=== PATIENT | male | born 1940 | race Caucasian/White ===

== ENCOUNTER 2019-02-11 15:46 | Emergency (ER) | payer MEDICARE, OTHER ==
[2019-02-11] MEDS ORDERED: NS 0.9% 1000 ML** 1,000 ML IV ONE (17:45)
--- NOTE | 2019-02-11 17:45 | ED ---
Abdominal Pain/Male - HPI Summary HPI Summary: Patient complains of intermittent right lower quadrant pain starting last night. Pain described as new onset, sharp, 4/10 pain, lasts for seconds at a time. Patient states 4 episodes since last night. No active abdominal pain at this time. Denies trauma, fever, cough, sore throat, CP, SOB, N/V/D, change in urine, change in BM, penile or testicular symptoms. Medical history is A. fib, anticoagulated with Coumadin. Abdominal surgical history is none. - History of Current Complaint Chief Complaint: EDAbdPain Stated Complaint: LOWER ABD PAIN Time Seen by Provider: 02/11/19 17:43 Hx Obtained From: Patient, Family/Slate [employer]er Onset/Duration: Sudden Onset, Lasting Hours Timing: Intermittent, Lasting Seconds Severity Initially: Moderate Severity Currently: Moderate Pain Intensity: 4 Pain Scale Used: 0-10 Numeric Location: Discrete At: RLQ Radiates: No Character: Sharp Aggravating Factor(s): Nothing Alleviating Factor(s): Spontaneous Resolution Associated Signs And Symptoms: Positive: Negative - Allergies/Home Medications Allergies/Adverse Reactions: Allergies Allergy/AdvReac Type Severity Reaction Status Date / Time No Known Allergies Allergy Verified 02/11/19 17:50 PMH/Surg Hx/FS Hx/Imm Hx Endocrine/Hematology History: Denies: Hx Anticoagulant Therapy Cardiovascular History: Reports: Hx Hypercholesterolemia, Hx Hypertension Respiratory History: Denies: Hx Chronic Obstructive Pulmonary Disease (COPD) History: Denies: Hx Dialysis Sensory History: Denies: Hx Eye Prosthesis Opthamlomology History: Denies: Hx Legally Blind EENT History: Denies: Hx Deafness Neurological History: Denies: Hx Dementia - Immunization History Date of Tetanus Vaccine: utd Date of Influenza Vaccine: 2014 Infectious Disease History: No Infectious Disease History: Denies: Traveled Outside the [place] in Last 30 Days - Family History Known Family History: Positive: Cardiac Disease - father, Other - brother and sister [place] Negative: Hypertension, Diabetes - Social History Alcohol Use: Occasionally Substance Use Type: Reports: None Smoking Status (MU): Former Smoker Review of Systems Constitutional: Negative Eyes: Negative ENT: Negative Cardiovascular: Negative Respiratory: Negative Positive: Abdominal Pain Genitourinary: Negative Musculoskeletal: Negative Skin: Negative Neurological: Negative Psychological: Normal All Other Systems Reviewed And Are Negative: Yes Physical Exam - Summary Physical Exam Summary: Abdomen soft nontender. Triage Information Reviewed: Yes Vital Signs On Initial Exam: Initial Vitals Temp Pulse Resp BP Pulse Ox 96.3 F 69 16 173/91 95 02/11/19 15:48 02/11/19 15:48 02/11/19 15:48 02/11/19 15:48 02/11/19 15:48 Vital Signs Reviewed: Yes Appearance: Positive: Well-Appearing Skin: Positive: Warm Head/Face: Positive: Normal Head/Face Inspection Eyes: Positive: Normal Neck: Positive: Supple Respiratory/Lung Sounds: Positive: Clear to Auscultation Cardiovascular: Positive: Normal Abdomen Description: Positive: Nontender Musculoskeletal: Positive: Normal Neurological: Positive: Normal Psychiatric: Positive: Normal AVPU Assessment: Alert - Royer Coma Scale Best Eye Response: 4 - Spontaneous Best Motor Response: 6 - Obeys Commands Best Verbal Response: 5 - Oriented Coma Scale Total: 15 Procedures - Sedation Patient Received Moderate/Deep Sedation with Procedure: No Diagnostics - Vital Signs Vital Signs Temp Pulse Resp BP Pulse Ox 02/11/19 15:48 96.3 F 69 16 173/91 95 - Laboratory Result Diagrams: 02/11/19 18:00 02/11/19 18:00 Lab Statement: Any lab studies that have been ordered have been reviewed, and results considered in the medical decision making process. Abdominal Pain Male Course/Dx - Course Course Of Treatment: Patient complains of intermittent right lower quadrant pain starting last night. Pain described as new onset, sharp, 4/10 pain, lasts for seconds at a time. Patient states 4 episodes since last night. No active abdominal pain at this time. Denies trauma, fever, cough, sore throat, CP, SOB , N/V/D, change in urine, change in BM, penile or testicular symptoms. Medical history is A. fib, anticoagulated with Coumadin. Abdominal surgical history is none. Vital signs within normal limits. Labs unremarkable. CT abdomen and pelvis negative except for inguinal hernia. - Diagnoses Provider Diagnoses: Abdominal pain, Inguinal hernia Discharge ED - Sign-Out/Discharge Documenting (check all that apply): Patient Departure - Discharge Plan Condition: Stable Disposition: HOME Patient Education Materials: Inguinal Hernia (ED), Acute Abdominal Pain (ED) Referrals: Ayanna Christie [Primary Care Provider] - Dillon Goodson MD [Medical Doctor] - Additional Instructions: Follow-up with general surgery Dr. Goodson for further evaluation of right inguinal hernia. Return to the ED for any new or worsening symptoms. - Billing Disposition and Condition Condition: STABLE Disposition: Home - Attestation Statements Provider Attestation: I was available for consultation for this patient. I did not evaluate the patient, or participate in any medical decision making or disposition decisions unless I am specifically named in the chart as having consulted on the patient. If I have consulted on the patient, please see my own ED note on the patient encounter. Zahira Breen MD
[2019-02-11 18:12] LABS: ABS Eosinophils 0.1 10^3/ul (0-0.6); ABS Lymphocytes 1.7 10^3/ul (1.0-4.8); ABS Monocytes 0.9 10^3/ul (0-0.8); ABS Neutrophils 4.9 10^3/ul (1.5-7.7); Eosinophil % 1.2 %; Hematocrit 49 % (42-52); Hemoglobin 16.6 g/dL (14.0-18.0); Lymphocyte % 22.3 %; Mean Corpuscular HGB Conc 34 g/dL (31-36); Mean Corpuscular Hemoglobin 32 pg (27-31); Mean Corpuscular Volume 95 fL (80-94); Mean Platelet Volume 8.4 fL (7.4-10.4); Nucleated Red Blood Cells % 0.1; Platelet Count 177 10^3/uL (150-450); Red Blood Count 5.21 10^6 /uL (4.18-5.48); Red Cell Distribution Width 14 % (10-15); White Blood Count 7.7 10^3/uL (3.5-10.8)
[2019-02-11 18:29] LABS: ALT 17 U/L (7-52); AST 25 U/L (13-39); Albumin 3.8 g/dL (3.2-5.2); Albumin/Globulin Ratio 1.5 (1-3); Alkaline Phosphatase 69 U/L (34-104); Anion Gap 3 mmol/L (2-11); BUN/Creatinine Ratio 13.1 (8-20); Blood Urea Nitrogen 14 mg/dL (6-24); C Reactive Protein 2.64 mg/L (<8.01); CO2 Carbon Dioxide 32 mmol/L (22-32); Calcium 9.4 mg/dL (8.6-10.3); Chloride 103 mmol/L (101-111); EGFR African American 81.1 (>60); Globulin 2.6 g/dL (2-4); Glucose 89 mg/dL (70-100); Potassium 4.5 mmol/L (3.5-5.0); Sodium 138 mmol/L (135-145); Total Protein 6.4 g/dL (6.4-8.9)
[2019-02-11] MEDS ORDERED: Iohexol 300* (CONTRAST) 10 ML SDV IV ONE (18:37)
[2019-02-11 20:12] VITALS: BP 161/109
== END 2019-02-11 20:12 | disposition home or self-care (01) ==
LOC: ED 15:46
DX: K40.90 Unilateral inguinal hernia, without obstruction or gangrene, not specified as recurrent (principal); K57.30 Diverticulosis of large intestine without perforation or abscess without bleeding; E78.00 Pure hypercholesterolemia, unspecified; I10 Essential (primary) hypertension; Z87.891 Personal history of nicotine dependence; I48.91 Unspecified atrial fibrillation; Z79.01 Long term (current) use of anticoagulants
CPT/HCPCS: 36415; 74177; 80053; 83605; 83690; 85025; 86140; 96360; 96361; 99282; Q9967

== ENCOUNTER 2023-02-11 17:17 | Inpatient (IN) ==
[2023-02-11 18:01] LABS: ABS Eosinophils 0.1 10^3/uL (0.0-0.5); ABS Lymphocytes 1.3 10^3/uL (1.0-4.8); ABS Neutrophils 6.2 10^3/uL (1.5-7.6); ABS Nucleated RBC 0.02 10^3/ul; Eosinophil % 1.1 %; Hematocrit 44.8 % (38-53); Hemoglobin 15.5 g/dL (13.2-16.3); Lymphocyte % 15.5 %; Mean Corpuscular Hemoglobin 31.2 pg (27-33); Mean Corpuscular Hgb Conc 34.5 g/dL (31-36); Mean Corpuscular Volume 90.4 fL (80-97); Mean Platelet Volume 8.5 fL (7.5-11.2); Nucleated Red Blood Cells % 0.2 %/100WBC (0.0-0.8); Platelet Count 185 10^3/uL (150-450); Red Blood Count 4.95 10^6/uL (4.06-5.63); Red Cell Distribution Width 15.7 % (12-17); White Blood Count 8.7 10^3/uL (3.6-10.2)
[2023-02-11] MEDS ORDERED: Iodixanol (CONTRAST) 320 MG/ML 100 ML SDV IV ONE (18:05)
[2023-02-11 18:24] LABS: Activated Partial Thrombo Time 42.3 seconds (26.0-38.0); Albumin 4.1 g/dL (3.2-5.2); Albumin/Globulin Ratio 1.7 (1-3); Creatinine, Serum 0.84 mg/dL (0.67-1.17); Direct Bilirubin 0.2 mg/dL (0.03-0.18); Globulin 2.4 g/dL (2-4); HDL Cholesterol 43.6 mg/dL; INR 1.42 (0.83-1.13); Indirect Bilirubin 0.9 mg/dL (0.3-1.0); Potassium 3.9 mmol/L (3.5-5.0); Total Bilirubin 1.1 mg/dL (0.2-1.0); Total Protein 6.5 g/dL (6.4-8.9); eGFR CKD-EPI 87.6 (>60)
[2023-02-11 19:18] LABS: Urine Appearance Clear; Urine Bilirubin Negative (Negative); Urine Blood 1+ (Negative); Urine Color Yellow; Urine Glucose Negative (Negative); Urine Ketones Negative (Negative); Urine Nitrite Negative (Negative); Urine Protein Negative (Negative); Urine Specific Gravity 1.038 (1.002-1.030); Urine Urobilinogen Negative (Negative)
[2023-02-11 19:39] LABS: High Sensitivity Troponin 1 Hr 27 pg/mL (<20)
[2023-02-11] MEDS ORDERED: HYDROcodone/ACETAMIN 5/325 mg TAB PO ONE (19:46)
[2023-02-11 19:50] LABS: Urine Bacteria Absent (Absent); Urine Red Blood Cell Trace(0-2/hpf) (Absent); Urine White Blood Cell Trace(0-5/hpf) (Absent)
[2023-02-12] MEDS ORDERED: Morphine 2 MG/ML SYRINGE IV PRN (01:32)
[2023-02-12] MEDS ORDERED: HYDROcodone/ACETAMIN 5/325 mg TAB PO ONE (01:55)
[2023-02-12 06:08] LABS: Hematocrit 45.2 % (38-53); Hemoglobin 15.4 g/dL (13.2-16.3); Mean Corpuscular Hemoglobin 30.8 pg (27-33); Mean Corpuscular Volume 90.7 fL (80-97); Mean Platelet Volume 8.6 fL (7.5-11.2); Platelet Count 184 10^3/uL (150-450); Red Blood Count 4.99 10^6/uL (4.06-5.63); Red Cell Distribution Width 15.9 % (12-17); White Blood Count 8.8 10^3/uL (3.6-10.2)
[2023-02-12 06:31] LABS: Creatinine, Serum 0.82 mg/dL (0.67-1.17); Potassium 3.5 mmol/L (3.5-5.0); eGFR CKD-EPI 88.2 (>60)
[2023-02-12] MEDS: HYDROcodone/ACETAMIN 5/325 mg TAB PO SCH ×3 (08:25→20:41)
[2023-02-12] MEDS ORDERED: Sulfur Hexaflouride MICROSPHR 25 MG VIAL ONE (09:01)
[2023-02-12 17:23] LABS: Folate 9.61 ng/mL (5.90-24.80)
[2023-02-12] MEDS ORDERED: Thiamine 100 MG/ML 2 ml VIAL 100 MG, Folic Acid IV 1 MG, Multiple Vitamin IV ADULT 10 M... IV ONE (18:00)
[2023-02-13 06:55] LABS: Hematocrit 46.3 % (38-53); Hemoglobin 15.7 g/dL (13.2-16.3); Mean Corpuscular Hemoglobin 30.8 pg (27-33); Mean Corpuscular Volume 90.6 fL (80-97); Mean Platelet Volume 8.2 fL (7.5-11.2); Platelet Count 193 10^3/uL (150-450); Red Blood Count 5.11 10^6/uL (4.06-5.63); Red Cell Distribution Width 15.8 % (12-17)
[2023-02-13 07:17] LABS: Calcium 8.8 mg/dL (8.6-10.3); Creatinine, Serum 0.87 mg/dL (0.67-1.17); Magnesium 1.9 mg/dL (1.9-2.7); Potassium 3.8 mmol/L (3.5-5.0); eGFR CKD-EPI 86.7 (>60)
[2023-02-13] MEDS ORDERED: Rocuronium 50 mg VIAL 10 mg/ml 5 ml VIAL (50 mg) ONE (09:16)
[2023-02-13] MEDS ORDERED: Glycopyrrolate IV 0.2 MG/ML 1 ML VIAL ONE (09:17)
[2023-02-13] MEDS ORDERED: Propofol 10 MG/ML 20 ML BTL ONE (09:17)
[2023-02-13] MEDS ORDERED: Ondansetron 4 mg VIAL 2 MG/ML 2 ml VIAL ONE (09:17)
[2023-02-13] MEDS ORDERED: Lidocaine 2% PF 5 ML VIAL ONE (09:17)
[2023-02-13] MEDS ORDERED: Phenylephrine 40 mcg/mL 10mL (400mcg) SYRINGE ONE (09:17)
[2023-02-13] MEDS ORDERED: KETAMINE HCL 10 MG/ML 20 ml VIAL (200 MG) ONE (09:20)
[2023-02-13] MEDS: HYDROcodone/ACETAMIN 5/325 mg TAB PO SCH ×3 (11:48→20:58)
[2023-02-14 07:07] LABS: ABS Eosinophils 0.1 10^3/uL (0.0-0.5); ABS Lymphocytes 1.3 10^3/uL (1.0-4.8); ABS Monocytes 1.4 10^3/uL (0.0-1.1); ABS Neutrophils 8.2 10^3/uL (1.5-7.6); ABS Nucleated RBC 0.01 10^3/ul; Eosinophil % 0.6 %; Hematocrit 46.8 % (38-53); Hemoglobin 15.7 g/dL (13.2-16.3); Lymphocyte % 11.9 %; Mean Corpuscular Hemoglobin 30.7 pg (27-33); Mean Corpuscular Hgb Conc 33.5 g/dL (31-36); Mean Corpuscular Volume 91.6 fL (80-97); Mean Platelet Volume 9.1 fL (7.5-11.2); Nucleated Red Blood Cells % 0.1 %/100WBC (0.0-0.8); Platelet Count 187 10^3/uL (150-450); Red Blood Count 5.11 10^6/uL (4.06-5.63); Red Cell Distribution Width 15.8 % (12-17)
[2023-02-14 07:30] LABS: Calcium 8.7 mg/dL (8.6-10.3); Creatinine, Serum 0.86 mg/dL (0.67-1.17); Magnesium 1.9 mg/dL (1.9-2.7); Phosphorus 2.7 mg/dL (2.5-5.0); Potassium 4.1 mmol/L (3.5-5.0)
[2023-02-14] MEDS: HYDROcodone/ACETAMIN 5/325 mg TAB PO SCH ×3 (09:16→20:11)
[2023-02-15 04:21] LABS: PCO2 Arterial 43 mmHg (35-45); PO2 Arterial 103 mmHg (80-100)
[2023-02-15 06:49] LABS: ABS Eosinophils 0.1 10^3/uL (0.0-0.5); ABS Lymphocytes 1.2 10^3/uL (1.0-4.8); ABS Monocytes 1.5 10^3/uL (0.0-1.1); ABS Neutrophils 8.7 10^3/uL (1.5-7.6); Eosinophil % 0.5 %; Lymphocyte % 10.3 %; Mean Corpuscular Hemoglobin 31.1 pg (27-33); Mean Corpuscular Hgb Conc 33.9 g/dL (31-36); Mean Corpuscular Volume 91.6 fL (80-97); Mean Platelet Volume 8.9 fL (7.5-11.2); Platelet Count 201 10^3/uL (150-450); Red Blood Count 5.13 10^6/uL (4.06-5.63); Red Cell Distribution Width 15.9 % (12-17); White Blood Count 11.4 10^3/uL (3.6-10.2)
[2023-02-15 07:29] LABS: Magnesium 1.9 mg/dL (1.9-2.7); Phosphorus 2.6 mg/dL (2.5-5.0)
[2023-02-15] MEDS: HYDROcodone/ACETAMIN 5/325 mg TAB PO SCH ×3 (08:02→21:22)
[2023-02-15] MEDS ORDERED: Lisinopril/HCTZ 10/12.5 TA(NF) PO SCH (12:00)
[2023-02-15] MEDS ORDERED: ceFAZolin VIAL 2 GM in NS 0.9% 100 ml BAG 100 ML IVPB SCH (18:00)
[2023-02-15] MEDS: ceFAZolin 2 GM in NS PREMIX 2 GM/100 ML BAG IVPB SCH (21:18)
[2023-02-16 01:49] LABS: Urine Appearance Cloudy; Urine Bilirubin Negative (Negative); Urine Blood 3+ (Negative); Urine Color Amber; Urine Glucose Negative (Negative); Urine Ketones Negative (Negative); Urine Nitrite Negative (Negative); Urine Protein 1+(30 mg/dL) (Negative); Urine Specific Gravity 1.023 (1.002-1.030); Urine Urobilinogen Negative (Negative)
[2023-02-16 01:55] LABS: Urine Bacteria Absent (Absent); Urine Red Blood Cell 3+(>10/hpf) (Absent); Urine Squamous Epithelial Cell Present (Absent); Urine White Blood Cell 2+(11-20/hpf) (Absent)
[2023-02-16] MEDS: ceFAZolin 2 GM in NS PREMIX 2 GM/100 ML BAG IVPB SCH ×4 (03:14→20:58)
[2023-02-16] MEDS: HYDROcodone/ACETAMIN 5/325 mg TAB PO SCH ×3 (07:48→20:54)
[2023-02-16 07:49] LABS: Albumin 3.4 g/dL (3.2-5.2); Albumin/Globulin Ratio 1.2 (1-3); Calcium 8.6 mg/dL (8.6-10.3); Creatinine, Serum 1.03 mg/dL (0.67-1.17); Globulin 2.8 g/dL (2-4); Phosphorus 3.2 mg/dL (2.5-5.0); Potassium 4.2 mmol/L (3.5-5.0); Total Bilirubin 1.6 mg/dL (0.2-1.0); Total Protein 6.2 g/dL (6.4-8.9)
[2023-02-16 09:27] LABS: Hematocrit 45.7 % (38-53); Hemoglobin 15.4 g/dL (13.2-16.3); Mean Corpuscular Hgb Conc 33.8 g/dL (31-36); Mean Corpuscular Volume 91.9 fL (80-97); Mean Platelet Volume 9.1 fL (7.5-11.2); Platelet Count 200 10^3/uL (150-450); Red Blood Count 4.97 10^6/uL (4.06-5.63); Red Cell Distribution Width 15.6 % (12-17); White Blood Count 12.6 10^3/uL (3.6-10.2)
[2023-02-16 09:42] LABS: ABS Eosinophils 0.1 10^3/uL (0.0-0.5); ABS Lymphocytes 1.3 10^3/uL (1.0-4.8); ABS Monocytes 1.8 10^3/uL (0.0-1.1); ABS Neutrophils 9.4 10^3/uL (1.5-7.6); ABS Nucleated RBC 0.01 10^3/ul; Eosinophil % 0.5 %; Lymphocyte % 10.5 %; Nucleated Red Blood Cells % 0.1 %/100WBC (0.0-0.8)
[2023-02-17] MEDS: HYDROcodone/ACETAMIN 5/325 mg TAB PO SCH ×3 (08:22→20:54)
[2023-02-17] MEDS: ceFAZolin 2 GM in NS PREMIX 2 GM/100 ML BAG IVPB SCH ×3 (08:22→21:08)
[2023-02-17 13:37] LABS: ABS Basophils 0.1 10^3/uL (0.0-0.1); ABS Eosinophils 0.2 10^3/uL (0.0-0.5); ABS Lymphocytes 1.1 10^3/uL (1.0-4.8); ABS Monocytes 1.4 10^3/uL (0.0-1.1); ABS Neutrophils 9.6 10^3/uL (1.5-7.6); ABS Nucleated RBC 0.02 10^3/ul; Hemoglobin 15.6 g/dL (13.2-16.3); Lymphocyte % 8.9 %; Mean Corpuscular Hemoglobin 31.1 pg (27-33); Mean Corpuscular Hgb Conc 33.9 g/dL (31-36); Mean Corpuscular Volume 91.8 fL (80-97); Mean Platelet Volume 8.6 fL (7.5-11.2); Nucleated Red Blood Cells % 0.1 %/100WBC (0.0-0.8); Platelet Count 232 10^3/uL (150-450); Red Blood Count 5.01 10^6/uL (4.06-5.63); Red Cell Distribution Width 15.5 % (12-17); White Blood Count 12.4 10^3/uL (3.6-10.2)
[2023-02-17 13:53] LABS: Calcium 9.1 mg/dL (8.6-10.3); Creatinine, Serum 0.81 mg/dL (0.67-1.17); Phosphorus 2.9 mg/dL (2.5-5.0); Potassium 4.5 mmol/L (3.5-5.0); eGFR CKD-EPI 88.6 (>60)
[2023-02-17] MEDS ORDERED: Docusate LIQ 100 MG/10 ML UDC PO PRN (16:15)
[2023-02-17 17:30] LABS: Urine Appearance Clear; Urine Bacteria Absent (Absent); Urine Bilirubin Negative (Negative); Urine Blood 1+ (Negative); Urine Color Yellow; Urine Glucose Negative (Negative); Urine Ketones Negative (Negative); Urine Nitrite Negative (Negative); Urine Protein 1+(30 mg/dL) (Negative); Urine Red Blood Cell 2+(6-10/hpf) (Absent); Urine Specific Gravity 1.024 (1.002-1.030); Urine Urobilinogen Negative (Negative); Urine White Blood Cell Trace(0-5/hpf) (Absent)
[2023-02-18 05:18] LABS: ABS Eosinophils 0.5 10^3/uL (0.0-0.5); ABS Monocytes 1.3 10^3/uL (0.0-1.1); ABS Nucleated RBC 0.01 10^3/ul; Eosinophil % 4.3 %; Hematocrit 44.7 % (38-53); Hemoglobin 15.3 g/dL (13.2-16.3); Lymphocyte % 9.3 %; Mean Corpuscular Hemoglobin 31.2 pg (27-33); Mean Corpuscular Hgb Conc 34.3 g/dL (31-36); Mean Platelet Volume 8.7 fL (7.5-11.2); Nucleated Red Blood Cells % 0.1 %/100WBC (0.0-0.8); Platelet Count 267 10^3/uL (150-450); Red Blood Count 4.91 10^6/uL (4.06-5.63); Red Cell Distribution Width 15.3 % (12-17); White Blood Count 10.8 10^3/uL (3.6-10.2)
[2023-02-18] MEDS: ceFAZolin 2 GM in NS PREMIX 2 GM/100 ML BAG IVPB SCH ×3 (05:23→21:41)
[2023-02-18 05:45] LABS: Calcium 8.8 mg/dL (8.6-10.3); Creatinine, Serum 0.67 mg/dL (0.67-1.17); Magnesium 1.9 mg/dL (1.9-2.7); Phosphorus 2.9 mg/dL (2.5-5.0); eGFR CKD-EPI 93.8 (>60)
[2023-02-18] MEDS: HYDROcodone/ACETAMIN 5/325 mg TAB PO SCH ×3 (10:20→21:31)
[2023-02-19] MEDS: ceFAZolin 2 GM in NS PREMIX 2 GM/100 ML BAG IVPB SCH (05:10)
[2023-02-19 06:29] LABS: ABS Basophils 0.1 10^3/uL (0.0-0.1); ABS Eosinophils 0.6 10^3/uL (0.0-0.5); ABS Lymphocytes 1.1 10^3/uL (1.0-4.8); ABS Monocytes 1.2 10^3/uL (0.0-1.1); ABS Nucleated RBC 0.01 10^3/ul; Eosinophil % 6.1 %; Hematocrit 46.3 % (38-53); Hemoglobin 15.6 g/dL (13.2-16.3); Lymphocyte % 11.4 %; Mean Corpuscular Hemoglobin 30.7 pg (27-33); Mean Corpuscular Hgb Conc 33.7 g/dL (31-36); Mean Platelet Volume 8.5 fL (7.5-11.2); Nucleated Red Blood Cells % 0.1 %/100WBC (0.0-0.8); Platelet Count 274 10^3/uL (150-450); Red Blood Count 5.09 10^6/uL (4.06-5.63)
[2023-02-19 06:52] LABS: Calcium 8.7 mg/dL (8.6-10.3); Creatinine, Serum 0.69 mg/dL (0.67-1.17); Magnesium 1.8 mg/dL (1.9-2.7); Potassium 3.9 mmol/L (3.5-5.0)
[2023-02-19] MEDS: HYDROcodone/ACETAMIN 5/325 mg TAB PO SCH (08:46)
[2023-02-19 08:51] VITALS: BP 152/101
[2023-02-19] MEDS ORDERED: ceFAZolin 2 GM PREMIX 2 GM/50 ML BAG IVPB SCH (22:00)
== END 2023-02-19 11:35 | DRG 70 ==
LOC: EDHOLD 17:17 → ED 17:17 → SUATTDRO 20:20 → MED 02-12 15:22 → MEDTELE 02-17 18:36
PROVIDERS: ADMIT Internal Medicine; ATTEND Hospitalist
PROC: O.CATEE (2023-02-13 09:00)

== ENCOUNTER 2023-02-18 13:57 | Inpatient (IN) ==
[2023-02-19] MEDS ORDERED: Senna TAB 8.6 mg TAB PO PRN (12:30)
[2023-02-19] MEDS ORDERED: Magnesium Hydroxide LIQ 30 ML UDC PO PRN (12:30)
[2023-02-19] MEDS ORDERED: ceFAZolin 2 GM in NS PREMIX 2 GM/100 ML BAG IVPB SCH (13:00)
[2023-02-19] MEDS: ceFAZolin 2 GM PREMIX 2 GM/50 ML BAG IV SCH ×2 (13:36→21:52)
[2023-02-19] MEDS: HYDROcodone/ACETAMIN 5/325 mg TAB PO PRN (16:03)
[2023-02-20] MEDS: ceFAZolin 2 GM PREMIX 2 GM/50 ML BAG IV SCH ×3 (05:17→20:19)
[2023-02-20] MEDS: HYDROcodone/ACETAMIN 5/325 mg TAB PO PRN (08:23)
[2023-02-20 09:03] LABS: Albumin 3.2 g/dL (3.2-5.2); Calcium 8.6 mg/dL (8.6-10.3); Creatinine, Serum 0.82 mg/dL (0.67-1.17); Globulin 3.1 g/dL (2-4); Potassium 3.9 mmol/L (3.5-5.0); Total Bilirubin 0.9 mg/dL (0.2-1.0); Total Protein 6.3 g/dL (6.4-8.9); eGFR CKD-EPI 88.2 (>60)
[2023-02-20 12:50] LABS: ABS Basophils 0.1 10^3/uL (0.0-0.1); ABS Eosinophils 0.6 10^3/uL (0.0-0.5); ABS Lymphocytes 1.1 10^3/uL (1.0-4.8); ABS Monocytes 1.2 10^3/uL (0.0-1.1); ABS Neutrophils 8.5 10^3/uL (1.5-7.6); ABS Nucleated RBC 0.01 10^3/ul; Eosinophil % 5.4 %; Hematocrit 45.6 % (38-53); Hemoglobin 15.6 g/dL (13.2-16.3); Lymphocyte % 9.9 %; Mean Corpuscular Hemoglobin 31.3 pg (27-33); Mean Corpuscular Hgb Conc 34.3 g/dL (31-36); Mean Corpuscular Volume 91.3 fL (80-97); Mean Platelet Volume 8.3 fL (7.5-11.2); Nucleated Red Blood Cells % 0.1 %/100WBC (0.0-0.8); Platelet Count 352 10^3/uL (150-450); Red Blood Count 4.99 10^6/uL (4.06-5.63); Red Cell Distribution Width 14.9 % (12-17); White Blood Count 11.6 10^3/uL (3.6-10.2)
[2023-02-21] MEDS: ceFAZolin 2 GM PREMIX 2 GM/50 ML BAG IV SCH ×3 (06:22→21:27)
[2023-02-21] MEDS: HYDROcodone/ACETAMIN 5/325 mg TAB PO PRN ×2 (11:42→18:24)
[2023-02-22] MEDS: HYDROcodone/ACETAMIN 5/325 mg TAB PO PRN ×2 (05:36→15:21)
[2023-02-22] MEDS: ceFAZolin 2 GM PREMIX 2 GM/50 ML BAG IV SCH ×3 (05:42→22:33)
[2023-02-23] MEDS: ceFAZolin 2 GM PREMIX 2 GM/50 ML BAG IV SCH ×3 (05:45→22:06)
[2023-02-23 06:57] LABS: ABS Basophils 0.1 10^3/uL (0.0-0.1); ABS Eosinophils 0.5 10^3/uL (0.0-0.5); ABS Lymphocytes 1.3 10^3/uL (1.0-4.8); ABS Monocytes 1.1 10^3/uL (0.0-1.1); ABS Neutrophils 5.9 10^3/uL (1.5-7.6); ABS Nucleated RBC 0.01 10^3/ul; Eosinophil % 5.6 %; Hematocrit 43.6 % (38-53); Hemoglobin 14.7 g/dL (13.2-16.3); Lymphocyte % 14.8 %; Mean Corpuscular Hemoglobin 30.7 pg (27-33); Mean Corpuscular Hgb Conc 33.8 g/dL (31-36); Mean Corpuscular Volume 91.1 fL (80-97); Mean Platelet Volume 7.7 fL (7.5-11.2); Nucleated Red Blood Cells % 0.1 %/100WBC (0.0-0.8); Platelet Count 326 10^3/uL (150-450); Red Blood Count 4.79 10^6/uL (4.06-5.63); Red Cell Distribution Width 14.7 % (12-17); White Blood Count 8.8 10^3/uL (3.6-10.2)
[2023-02-23 07:14] LABS: Albumin 3.2 g/dL (3.2-5.2); Albumin/Globulin Ratio 1.2 (1-3); C Reactive Protein 23.28 mg/L (<8.01); Calcium 8.6 mg/dL (8.6-10.3); Creatinine, Serum 0.87 mg/dL (0.67-1.17); Globulin 2.6 g/dL (2-4); Potassium 4.3 mmol/L (3.5-5.0); Total Bilirubin 0.6 mg/dL (0.2-1.0); Total Protein 5.8 g/dL (6.4-8.9); eGFR CKD-EPI 86.7 (>60)
[2023-02-23] MEDS: HYDROcodone/ACETAMIN 5/325 mg TAB PO PRN ×2 (11:45→18:06)
[2023-02-24] MEDS: ceFAZolin 2 GM PREMIX 2 GM/50 ML BAG IV SCH ×3 (05:25→21:30)
[2023-02-24] MEDS: HYDROcodone/ACETAMIN 5/325 mg TAB PO PRN ×2 (11:38→21:30)
[2023-02-25] MEDS: ceFAZolin 2 GM PREMIX 2 GM/50 ML BAG IV SCH ×3 (05:12→21:34)
[2023-02-25] MEDS: HYDROcodone/ACETAMIN 5/325 mg TAB PO PRN ×3 (05:48→20:13)
[2023-02-26] MEDS: ceFAZolin 2 GM PREMIX 2 GM/50 ML BAG IV SCH ×3 (06:41→21:33)
[2023-02-26] MEDS: HYDROcodone/ACETAMIN 5/325 mg TAB PO PRN ×2 (14:29→22:34)
[2023-02-27 09:18] LABS: Albumin 3.5 g/dL (3.2-5.2); Albumin/Globulin Ratio 1.2 (1-3); Creatinine, Serum 0.77 mg/dL (0.67-1.17); Globulin 2.9 g/dL (2-4); Potassium 4.8 mmol/L (3.5-5.0); Total Bilirubin 0.6 mg/dL (0.2-1.0); Total Protein 6.4 g/dL (6.4-8.9); eGFR CKD-EPI 89.9 (>60)
[2023-02-27 15:12] LABS: ABS Basophils 0.2 10^3/uL (0.0-0.1); ABS Eosinophils 0.3 10^3/uL (0.0-0.5); ABS Lymphocytes 1.8 10^3/uL (1.0-4.8); ABS Monocytes 0.9 10^3/uL (0.0-1.1); ABS Neutrophils 8.1 10^3/uL (1.5-7.6); ABS Nucleated RBC 0.02 10^3/ul; Hematocrit 46.7 % (38-53); Hemoglobin 15.6 g/dL (13.2-16.3); Lymphocyte % 16.3 %; Mean Corpuscular Hemoglobin 30.5 pg (27-33); Mean Corpuscular Hgb Conc 33.4 g/dL (31-36); Mean Corpuscular Volume 91.5 fL (80-97); Mean Platelet Volume 8.3 fL (7.5-11.2); Nucleated Red Blood Cells % 0.2 %/100WBC (0.0-0.8); Platelet Count 394 10^3/uL (150-450); White Blood Count 11.3 10^3/uL (3.6-10.2)
[2023-02-27] MEDS: HYDROcodone/ACETAMIN 5/325 mg TAB PO PRN (20:50)
[2023-02-28] MEDS: HYDROcodone/ACETAMIN 5/325 mg TAB PO PRN ×3 (08:23→21:39)
[2023-03-01 05:31] VITALS: BP 135/82
[2023-03-01] MEDS: HYDROcodone/ACETAMIN 5/325 mg TAB PO PRN (08:11)
[2023-03-05 18:21] LABS: ANNA-1, S Negative (Negative); ANNA-2, S Negative (Negative); DPPX Ab IFA, S Negative (Negative); GFAP IFA, S Negative (Negative); IFA Notes None.; NIF IFA, S Negative (Negative); Neurochondrin IFA, S Negative (Negative); mGluR1 Ab IFA, S Negative (Negative)
== END 2023-03-01 15:30 | disposition home or self-care (01) | DRG 98 ==
LOC: PMRU 02-19 11:48
PROVIDERS: ADMIT Physical Medicine & Rehabilitation; ATTEND Physical Medicine & Rehabilitation

== ENCOUNTER 2023-08-30 19:39 | Inpatient (IN) ==
[2023-08-30 20:11] LABS: ABS Lymphocytes 0.8 10^3/uL (1.0-4.8); ABS Monocytes 0.7 10^3/uL (0.0-1.1); ABS Neutrophils 4.6 10^3/uL (1.5-7.6); ABS Nucleated RBC 0.01 10^3/ul; Eosinophil % 0.2 %; Hematocrit 49.4 % (38-53); Hemoglobin 16.9 g/dL (13.2-16.3); Lymphocyte % 12.3 %; Mean Corpuscular Hemoglobin 32.2 pg (27-33); Mean Corpuscular Hgb Conc 34.1 g/dL (31-36); Mean Corpuscular Volume 94.2 fL (80-97); Mean Platelet Volume 8.7 fL (7.5-11.2); Nucleated Red Blood Cells % 0.2 %/100WBC (0.0-0.8); Platelet Count 164 10^3/uL (150-450); Red Blood Count 5.24 10^6/uL (4.06-5.63); Red Cell Distribution Width 15.5 % (12-17); White Blood Count 6.1 10^3/uL (3.6-10.2)
[2023-08-30 20:30] LABS: Activated Partial Thrombo Time 42.9 seconds (26.0-38.0); INR 1.28 (0.83-1.13)
[2023-08-30] MEDS: Iodixanol (CONTRAST) 320 MG/ML 100 ML SDV IV ONE (20:37)
[2023-08-30 20:38] LABS: Albumin 4.2 g/dL (3.2-5.2); Albumin/Globulin Ratio 1.7 (1-3); Calcium 9.2 mg/dL (8.6-10.3); Creatinine, Serum 1.02 mg/dL (0.67-1.17); Direct Bilirubin 0.1 mg/dL (0.03-0.18); Globulin 2.5 g/dL (2-4); HDL Cholesterol 50.3 mg/dL; Indirect Bilirubin 0.8 mg/dL (0.3-1.0); Potassium 4.6 mmol/L (3.5-5.0); Total Bilirubin 0.9 mg/dL (0.2-1.0); Total Protein 6.7 g/dL (6.4-8.9); eGFR CKD-EPI 73.8 (>60)
[2023-08-30 21:31] LABS: Urine Appearance Clear; Urine Bacteria Absent /HPF (Absent); Urine Bilirubin Negative (Negative); Urine Blood Trace (Negative); Urine Color Yellow; Urine Glucose Negative (Negative); Urine Ketones Negative (Negative); Urine Nitrite Negative (Negative); Urine Protein 1+ (>=30 mg/dL) (Negative); Urine Red Blood Cell Trace(0-2/hpf) /HPF (0-Trace); Urine Specific Gravity >1.050 (1.002-1.030); Urine Urobilinogen Negative (Negative); Urine White Blood Cell Trace(0-5/hpf) /HPF (0-Trace); Urine pH 6.5 (5.0-8.0)
[2023-08-30 21:48] LABS: High Sensitivity Troponin 1 Hr 23 pg/mL (<20)
[2023-08-31 02:53] LABS: TSH Ultra Thyroid Stim Horm 0.9 mcIU/mL (0.34-5.60)
[2023-08-31] MEDS ORDERED: Sulfur Hexaflouride MICROSPHR 25 MG VIAL IV ONE (03:01)
[2023-08-31 03:04] LABS: Folate 7.61 ng/mL (5.90-24.80)
[2023-08-31 03:11] LABS: C Reactive Protein 17.41 mg/L (<8.01)
[2023-08-31] MEDS ORDERED: Nitroglycerin 0.6 mg TAB SL PRN (03:21)
[2023-08-31 05:32] LABS: High Sensitivity Troponin 3 Hr 33 pg/mL (<20)
[2023-08-31 12:06] LABS: ABS Lymphocytes 0.6 10^3/uL (1.0-4.8); ABS Monocytes 0.6 10^3/uL (0.0-1.1); ABS Neutrophils 5.3 10^3/uL (1.5-7.6); ABS Nucleated RBC 0.03 10^3/ul; Eosinophil % 0.1 %; Hematocrit 46.2 % (38-53); Hemoglobin 15.8 g/dL (13.2-16.3); Lymphocyte % 9.4 %; Mean Corpuscular Hemoglobin 31.8 pg (27-33); Mean Corpuscular Hgb Conc 34.1 g/dL (31-36); Mean Corpuscular Volume 93.3 fL (80-97); Mean Platelet Volume 8.5 fL (7.5-11.2); Nucleated Red Blood Cells % 0.4 %/100WBC (0.0-0.8); Platelet Count 146 10^3/uL (150-450); Red Blood Count 4.95 10^6/uL (4.06-5.63); Red Cell Distribution Width 15.4 % (12-17); White Blood Count 6.6 10^3/uL (3.6-10.2)
[2023-08-31] MEDS ORDERED: Polyethylene Glycol 3350 17 GM PACKET PO PRN (15:46)
[2023-08-31] MEDS ORDERED: HYDROcodone/ACETAMIN 5/325 mg TAB PO PRN (15:46)
[2023-08-31] MEDS ORDERED: Senna/Docusate 8.6/50 mg (NF) TAB PO PRN (15:46)
[2023-08-31 17:11] LABS: Calcium 8.5 mg/dL (8.6-10.3); Creatinine, Serum 0.9 mg/dL (0.67-1.17); Potassium 4.3 mmol/L (3.5-5.0); eGFR CKD-EPI 85.8 (>60)
[2023-08-31 18:59] LABS: Erythrocyte Sed Rate 12 mm/Hr (0-19)
[2023-08-31] MEDS: Carboxymethylcellulos 1% OPTH 1 AMP BOTH EYES SCH (22:18)
[2023-09-01 06:29] LABS: Hematocrit 47.8 % (38-53); Hemoglobin 16.1 g/dL (13.2-16.3); Mean Corpuscular Hemoglobin 31.4 pg (27-33); Mean Corpuscular Hgb Conc 33.7 g/dL (31-36); Mean Corpuscular Volume 93.1 fL (80-97); Mean Platelet Volume 8.4 fL (7.5-11.2); Platelet Count 119 10^3/uL (150-450); Red Blood Count 5.13 10^6/uL (4.06-5.63); Red Cell Distribution Width 15.5 % (12-17)
[2023-09-01 07:02] LABS: Calcium 8.2 mg/dL (8.6-10.3); Creatinine, Serum 0.88 mg/dL (0.67-1.17); Magnesium 1.7 mg/dL (1.9-2.7); Potassium 3.9 mmol/L (3.5-5.0); eGFR CKD-EPI 86.4 (>60)
[2023-09-01] MEDS: Magnesium Sulfate 2 gm BAG 2 GM/50 ML BAG IVPB ONE (07:57)
[2023-09-01] MEDS: Timolol 0.5% OPTH.SOL BTL BOTH EYES SCH (08:17)
[2023-09-01] MEDS ORDERED: Sulfur Hexaflouride MICROSPHR 25 MG VIAL ONE (14:13)
[2023-09-01 15:05] LABS: ABS Lymphocytes 0.5 10^3/uL (1.0-4.8); ABS Monocytes 0.7 10^3/uL (0.0-1.1); ABS Neutrophils 5.5 10^3/uL (1.5-7.6); Hemoglobin 16.6 g/dL (13.2-16.3); Lymphocyte % 7.3 %; Mean Corpuscular Hemoglobin 31.7 pg (27-33); Mean Corpuscular Volume 93.4 fL (80-97); Mean Platelet Volume 8.6 fL (7.5-11.2); Platelet Count 124 10^3/uL (150-450); Red Blood Count 5.24 10^6/uL (4.06-5.63); Red Cell Distribution Width 15.4 % (12-17); White Blood Count 6.7 10^3/uL (3.6-10.2)
[2023-09-01] MEDS ORDERED: Iodixanol (CONTRAST) 320 MG/ML 100 ML SDV IV ONE (15:07)
[2023-09-01] MEDS ORDERED: Vancomycin 1,000 MG in NS 0.9% 250 ml 250 ML IVPB ONE (15:10)
[2023-09-01 15:16] LABS: Activated Partial Thrombo Time 45.8 seconds (26.0-38.0); INR 1.73 (0.83-1.13)
[2023-09-01] MEDS: Lactated Ringers 1000 ml BAG 1,000 ML IV SCH (15:36)
[2023-09-01 15:42] LABS: Albumin 3.9 g/dL (3.2-5.2); Albumin/Globulin Ratio 1.9 (1-3); Calcium 8.4 mg/dL (8.6-10.3); Creatinine, Serum 0.94 mg/dL (0.67-1.17); Direct Bilirubin 0.2 mg/dL (0.03-0.18); Globulin 2.1 g/dL (2-4); HDL Cholesterol 46.4 mg/dL; Potassium 4.3 mmol/L (3.5-5.0); Total Bilirubin 1.2 mg/dL (0.2-1.0); eGFR CKD-EPI 81.4 (>60)
[2023-09-01] MEDS ORDERED: Vancomycin per Pharmacy 1 EA NOTE FOLLOW UP SCH (16:00)
[2023-09-01] MEDS: cefTRIAXone 2 gm/50 mL D5W 2 GM/50 ML BAG IV SCH (16:16)
[2023-09-01] MEDS: Ampicillin ADVAN 2 GM in NS 0.9% 100 ml BAG 100 ML IVPB SCH (17:03)
[2023-09-01] MEDS: Vancomycin 1,750 MG in NS 0.9% 500 ml BAG 500 ML IVPB ONE (17:52)
[2023-09-01] MEDS: Sulfur Hexaflouride MICROSPHR 25 MG VIAL IV ONE (20:28)
[2023-09-01] MEDS ORDERED: ACYCLOVIR IVPB SCH (23:00)
[2023-09-01] MEDS ORDERED: NS 0.9% IVPB SCH (23:00)
[2023-09-01 23:06] LABS: PCO2 Arterial 36 mmHg (35-45); PO2 Arterial 139 mmHg (80-100)
[2023-09-01 23:11] LABS: ABS Lymphocytes 0.6 10^3/uL (1.0-4.8); ABS Monocytes 0.7 10^3/uL (0.0-1.1); ABS Nucleated RBC 0.02 10^3/ul; Eosinophil % 0.1 %; Hematocrit 48.8 % (38-53); Hemoglobin 16.9 g/dL (13.2-16.3); Lymphocyte % 7.5 %; Mean Corpuscular Hemoglobin 32.2 pg (27-33); Mean Corpuscular Hgb Conc 34.6 g/dL (31-36); Mean Corpuscular Volume 93.1 fL (80-97); Mean Platelet Volume 8.9 fL (7.5-11.2); Nucleated Red Blood Cells % 0.2 %/100WBC (0.0-0.8); Platelet Count 114 10^3/uL (150-450); Red Blood Count 5.24 10^6/uL (4.06-5.63); Red Cell Distribution Width 15.2 % (12-17); White Blood Count 8.4 10^3/uL (3.6-10.2)
[2023-09-01] MEDS: Acyclovir IV 800 MG in NS 0.9% 250 ml 250 ML IVPB SCH (23:50)
[2023-09-01] MEDS: Furosemide 20 mg/2 ml IV VIAL IV SLOW PU ONE (23:51)
[2023-09-01 23:54] LABS: Albumin 3.8 g/dL (3.2-5.2); Albumin/Globulin Ratio 1.7 (1-3); Calcium 8.1 mg/dL (8.6-10.3); Creatinine, Serum 0.87 mg/dL (0.67-1.17); Globulin 2.3 g/dL (2-4); Potassium 4.3 mmol/L (3.5-5.0); Total Bilirubin 1.3 mg/dL (0.2-1.0); Total Protein 6.1 g/dL (6.4-8.9); eGFR CKD-EPI 86.7 (>60)
[2023-09-02 06:33] LABS: Hematocrit 50.7 % (38-53); Hemoglobin 17.4 g/dL (13.2-16.3); Mean Corpuscular Hemoglobin 32.3 pg (27-33); Mean Corpuscular Hgb Conc 34.3 g/dL (31-36); Mean Corpuscular Volume 94.1 fL (80-97); Mean Platelet Volume 8.8 fL (7.5-11.2); Platelet Count 115 10^3/uL (150-450); Red Blood Count 5.38 10^6/uL (4.06-5.63); Red Cell Distribution Width 15.6 % (12-17); White Blood Count 7.6 10^3/uL (3.6-10.2)
[2023-09-02] MEDS: Vancomycin 1,250 MG in NS 0.9% 250 ml 250 ML IVPB SCH (07:51)
[2023-09-02 08:50] LABS: Calcium 8.1 mg/dL (8.6-10.3); Creatinine, Serum 1.03 mg/dL (0.67-1.17); Potassium 4.2 mmol/L (3.5-5.0); eGFR CKD-EPI 72.5 (>60)
[2023-09-02] MEDS: Docusate LIQ 100 MG/10 ML UDC PO PRN (13:29)
[2023-09-02] MEDS: Senna TAB 8.6 mg TAB PO PRN (13:29)
[2023-09-02] MEDS: NS 0.9% 1000 ml BAG 1,000 ML IV SCH ×2 (14:16→15:16)
[2023-09-02 16:12] LABS: C Reactive Protein 177.71 mg/L (<8.01)
[2023-09-02] MEDS ORDERED: ACYCLOVIR IVPB SCH (18:00)
[2023-09-02] MEDS ORDERED: NS 0.9% IVPB SCH (18:00)
[2023-09-03 08:32] LABS: Hematocrit 43.5 % (38-53); Hemoglobin 14.8 g/dL (13.2-16.3); Mean Corpuscular Hemoglobin 31.9 pg (27-33); Mean Corpuscular Volume 93.9 fL (80-97); Mean Platelet Volume 9.4 fL (7.5-11.2); Platelet Count 107 10^3/uL (150-450); Red Blood Count 4.63 10^6/uL (4.06-5.63); Red Cell Distribution Width 15.4 % (12-17); White Blood Count 5.2 10^3/uL (3.6-10.2)
[2023-09-03 08:57] LABS: Albumin 3.2 g/dL (3.2-5.2); Albumin/Globulin Ratio 1.5 (1-3); Calcium 7.9 mg/dL (8.6-10.3); Creatinine, Serum 0.78 mg/dL (0.67-1.17); Globulin 2.1 g/dL (2-4); Potassium 3.7 mmol/L (3.5-5.0); Total Bilirubin 0.8 mg/dL (0.2-1.0); Total Protein 5.3 g/dL (6.4-8.9)
[2023-09-03] MEDS: Potassium Chlor 20 meq TAB.ER PO ONE (14:44)
[2023-09-03] MEDS ORDERED: Lactated Ringers 1000 ml BAG 1,000 ML IV SCH (15:00)
[2023-09-03] MEDS: Lactated Ringers 1000 ml BAG 1,000 ML IV SCH ×2 (15:29→17:40)
[2023-09-03] MEDS: Vancomycin 1,250 MG in NS 0.9% 250 ml 250 ML IVPB SCH (16:46)
[2023-09-03] MEDS: Albuterol/Ipratropium NEB.SOL (2.5/0.5 MG) 3 ML NEB.SOLN INH PRN (17:45)
[2023-09-03] MEDS: Albuterol/Ipratropium NEB.SOL (2.5/0.5 MG) 3 ML NEB.SOLN ONE (17:45)
[2023-09-03] MEDS: Furosemide 40 mg/4 ml IV VIAL IV SLOW PU ONE (18:58)
[2023-09-03] MEDS: Vancomycin Trough Check NOTE FOLLOW UP ONE (22:06)
[2023-09-04 08:40] LABS: Magnesium 1.9 mg/dL (1.9-2.7)
[2023-09-04 09:17] LABS: Hematocrit 41.1 % (38-53); Hemoglobin 14.1 g/dL (13.2-16.3); Mean Corpuscular Hemoglobin 31.6 pg (27-33); Mean Corpuscular Hgb Conc 34.2 g/dL (31-36); Mean Corpuscular Volume 92.2 fL (80-97); Mean Platelet Volume 8.9 fL (7.5-11.2); Platelet Count 116 10^3/uL (150-450); Red Blood Count 4.46 10^6/uL (4.06-5.63); Red Cell Distribution Width 15.3 % (12-17); White Blood Count 5.5 10^3/uL (3.6-10.2)
[2023-09-04] MEDS: KCL 20 MEQ/100 ML IVPREMIX 20 MEQ/100 ML BAG IV ONE (09:34)
[2023-09-04 10:08] LABS: Calcium 7.8 mg/dL (8.6-10.3); Creatinine, Serum 0.77 mg/dL (0.67-1.17); Creatinine, Serum 0.78 mg/dL (0.67-1.17); Magnesium 1.6 mg/dL (1.9-2.7); Potassium 3.4 mmol/L (3.5-5.0); eGFR CKD-EPI 89.4 (>60)
[2023-09-04] MEDS: Vancomycin Trough Check NOTE FOLLOW UP ONE (12:24)
[2023-09-04] MEDS: Magnesium Sulfate 2 gm BAG 2 GM/50 ML BAG IVPB ONE (12:24)
[2023-09-04 18:44] LABS: Anaplasma phagocytophilum Negative (Negative); B. miyamotoi PCR, B Negative (Negative); Babesia divergens/MO-1 Negative (Negative); Babesia ducani Negative (Negative); Ehrlichia chaffeensis Negative (Negative); Ehrlichia ewingii/canis Negative (Negative); Ehrlichia muris eauclairensis Negative (Negative)
[2023-09-04] MEDS ORDERED: Vancomycin 1,250 MG in NS 0.9% 250 ml 250 ML IVPB SCH (20:00)
[2023-09-04] MEDS: Docusate LIQ 100 MG/10 ML UDC PO SCH (21:04)
[2023-09-05] MEDS ORDERED: Vancomycin Trough Check NOTE FOLLOW UP ONE (05:30)
[2023-09-05 05:47] LABS: ABS Eosinophils 0.2 10^3/uL (0.0-0.5); ABS Monocytes 0.8 10^3/uL (0.0-1.1); ABS Neutrophils 4.1 10^3/uL (1.5-7.6); ABS Nucleated RBC 0.01 10^3/ul; Hematocrit 40.6 % (38-53); Hemoglobin 13.5 g/dL (13.2-16.3); Lymphocyte % 16.4 %; Mean Corpuscular Hgb Conc 33.3 g/dL (31-36); Mean Corpuscular Volume 93.1 fL (80-97); Mean Platelet Volume 8.6 fL (7.5-11.2); Nucleated Red Blood Cells % 0.1 %/100WBC (0.0-0.8); Platelet Count 141 10^3/uL (150-450); Red Blood Count 4.36 10^6/uL (4.06-5.63); Red Cell Distribution Width 15.3 % (12-17); White Blood Count 6.2 10^3/uL (3.6-10.2)
[2023-09-05 06:24] LABS: Calcium 7.9 mg/dL (8.6-10.3); Creatinine, Serum 0.65 mg/dL (0.67-1.17); Magnesium 1.7 mg/dL (1.9-2.7); Potassium 3.7 mmol/L (3.5-5.0); eGFR CKD-EPI 94.1 (>60)
[2023-09-05 08:13] LABS: Vitamin D Total 25(OH) 31.1 ng/mL (20-50)
[2023-09-05] MEDS: HYDROcodone/ACETAMIN 5/325 mg TAB PO PRN (08:14)
[2023-09-05] MEDS: Potassium Chlor 20 meq TAB.ER PO ONE (10:14)
[2023-09-05 14:16] LABS: INR 1.06 (0.83-1.13)
[2023-09-05 15:13] LABS: Body Fluid Source Cerebral Spinal
[2023-09-05 15:29] LABS: CSF Glucose 59 mg/dL (40-70)
[2023-09-05 15:48] LABS: CSF Body Fluid WBC 0 /mcL
[2023-09-05 17:04] LABS: Body Fluid Appearance Clear; Body Fluid Color Colorless; Body Fluid Total Cells Counted 1
[2023-09-05 17:05] LABS: CSF Tube # 1
[2023-09-06 08:00] LABS: Hematocrit 42.1 % (38-53); Hemoglobin 14.5 g/dL (13.2-16.3); Mean Corpuscular Hemoglobin 31.9 pg (27-33); Mean Corpuscular Hgb Conc 34.4 g/dL (31-36); Mean Corpuscular Volume 92.8 fL (80-97); Mean Platelet Volume 8.3 fL (7.5-11.2); Platelet Count 178 10^3/uL (150-450); Red Blood Count 4.53 10^6/uL (4.06-5.63); Red Cell Distribution Width 15.4 % (12-17); White Blood Count 7.1 10^3/uL (3.6-10.2)
[2023-09-06] MEDS: Magnesium Sulfate 2 gm BAG 2 GM/50 ML BAG IVPB ONE (08:56)
[2023-09-06] MEDS: Calcium/Vitamin D TAB 250/125 TAB PO SCH (11:50)
[2023-09-06 11:52] VITALS: BP 158/92
[2023-09-06 12:35] LABS: Calcium 8.4 mg/dL (8.6-10.3); Creatinine, Serum 0.66 mg/dL (0.67-1.17); Magnesium 1.7 mg/dL (1.9-2.7); Potassium 3.9 mmol/L (3.5-5.0); eGFR CKD-EPI 93.6 (>60)
[2023-09-07 15:01] LABS: Albumin, CSF 19.2 mg/dL (<=27.0); Albumin, S 3300 mg/dL; IgG Index, CSF 0.48 (<=0.85); IgG, S 689 mg/dL (767 - 1590); IgG/Albumin, S 0.21 (<=0.40); Synthesis Rate, CSF 0.04 mg/24 h (<=12)
[2023-09-07 21:48] LABS: HSV 1 PCR, CSF Negative (Negative); HSV 2 PCR, CSF Negative (Negative)
[2023-09-08 13:21] LABS: CSF VDRL Negative (Negative)
[2023-09-08 15:37] LABS: CSF West Nile Virus IgG Ab Negative (Negative); CSF West Nile Virus IgM Ab Negative (Negative)
[2023-09-08 21:23] LABS: B. burgdorferi PCR Negative (Negative); B. garinii/B. afzellii PCR Negative (Negative); Lyme Disease Source CSF
[2023-09-18 18:27] LABS: AGNA-1, CSF Negative (Negative); Amphiphysin Ab, CSF Negative (Negative); CRMP-5-IgG, CSF Negative (Negative); IFA Notes None.; PCA-1, CSF Negative (Negative); PCA-2, CSF Negative (Negative); PCA-Tr, CSF Negative (Negative)
== END 2023-09-06 14:16 | disposition home health service (06) | DRG 871 ==
LOC: EDHOLD 19:39 → ED 19:39 → SUATTDRO 08-31 01:51 → MEDTELE 08-31 13:35 → SUATTDRO 09-02 13:42
PROVIDERS: ADMIT Internal Medicine; ATTEND Student in an Organized Health Care Education/Training Program